=== PATIENT | female | born 1995 | race Hispanic/Latino ===

== ENCOUNTER → 2020-02-29 | Outpatient (CLI) | payer OTHER ==
--- NOTE | 2020-02-29 13:58 | REP ---
OB ULTRASOUND AND BIOPHYSICAL PROFILE: Real-time sonographic evaluation of the gravid uterus performed. There is a single living intrauterine gestation with an estimated gestational age 38 weeks 6 days with EDC 03/08/2020. heart rate is 147 beats per minute. Amniotic fluid is within normal limits. LUIS CARLOS 10.3, normal range 7.2 to 22.7. Biophysical profile score 8/8. S/D ratio 1.95, normal range 1.6 to 2.6. RI 0.49. position vertex. Placenta is anterior and grade 2 with no previa or abruption. Electronically Signed by Jhoan Boateng MD 02/29/2020 03:08 P
== END ==
LOC: M RAD 12:10
PROVIDERS: ATTEND Registered Nurse Maternal Newborn
DX: O26.843 Uterine size-date discrepancy, third trimester (principal); Z3A.38 38 weeks gestation of pregnancy

== ENCOUNTER 2020-03-12 09:55 | Inpatient (IN) | payer OTHER ==
[~2020-03-12] VITALS: Ht 157.5 cm; Wt 97.2 kg
[2020-03-12] VITALS (72 sets, daily range): BP systolic 76–123; BP diastolic 38–69
[2020-03-12] MEDS ORDERED: ACYC1CAP20 PO (10:15)
[2020-03-12] MEDS ORDERED: PENICILLIN G POTASSIUM IV 5 MU in D5W MINI-BAG PLUS 100 ML IV STA ×2 (10:34→11:47)
[2020-03-12] MEDS ORDERED: OXYTOCIN DRIP 30 UNITS in IV 1 EA IV SCH (10:45)
[2020-03-12] MEDS ORDERED: LR 1,000 ML IV ONE (11:00)
[2020-03-12] MEDS: LR 1,000 ML IV SCH ×2 (11:27→16:58)
[2020-03-12 11:30] LABS: BASO % 0.1 % (0.0-1.0); EOS % 0.6 % (0.0-3.0); HEMATOCRIT 31.2 % (36.0-47.0); HEMOGLOBIN 10.1 g/dl (12.0-15.5); LYMPH % 15.5 % (24.0-44.0); MEAN CORPUSCULAR HEMOGLOBIN 26.1 pg (27.0-33.0); MEAN CORPUSCULAR HGB CONC 32.4 g/dl (32.0-36.5); MEAN CORPUSCULAR VOLUME 80.6 fl (80.0-96.0); MONO # 0.6 10^3/uL (0.0-0.8); MONO % 8.5 % (0.0-5.0); NEUTROPHILS % 74.7 % (36.0-66.0); PLATELET COUNT, AUTOMATED 201 10^3/uL (150-450); RED BLOOD COUNT 3.87 10^6/uL (4.00-5.40); WHITE BLOOD COUNT 6.7 10^3/uL (4.0-10.0)
[2020-03-12 12:41] LABS: HIV 1&2 SCREEN CENTAUR NEGATIVE (NEGATIVE)
[2020-03-12] MEDS ORDERED: PENICILLIN G POTASSIUM IV 2.5 MU in IV 1 EA IV SCH (14:45)
[2020-03-12] MEDS: PENICILLIN G POTASSIUM IV 2.5 MU in IV 1 EA IV SCH ×2 (16:05→20:26)
--- NOTE | 2020-03-12 16:38 | IPNPDOC ---
Text Note Date of Service The patient was seen on 03/12/20. NOTE Patient is uncomfortable w/ ctx. No LOF or VB. VS WNL NAD ABD NT, gravid SVE /0 LE no edema FHT, category 1, 140s, reactive, no decels, ctx q2min AROM clear. A/P Active labor. Fetus reassuring on pitocin. May reduce pitocin as necessary. Epidural per patient request. D/w patient. VS,Fishbone, I+O VS, Fishbone, I+O Laboratory Tests 03/12/20 11:12 Vital Signs Date Time Temp Pulse Resp B/P (MAP) Pulse Ox O2 Delivery O2 Flow Rate FiO2 03/12/20 15:09 81 108/55 (72) 03/12/20 10:11 96.5 16 Room Air Carlie Bustamante MD March 12, 2020 16:38
[2020-03-12] MEDS ORDERED: FENTANYL 2MCG/ML ROPIVACAINE 0.2% IN 0.9% NACL 100ML IVBAG As Ordered ONE (16:42)
[2020-03-12] MEDS ORDERED: LACTATED RINGER'S 1000 ML IV PRN (17:45)
[2020-03-12] MEDS ORDERED: EPIDURAL/PCA KEYS XX PRN (17:45)
[2020-03-12] MEDS ORDERED: ONDANSETRON 4MG/2ML VIAL IV PRN (17:45)
[2020-03-12] MEDS ORDERED: FENTANYL/ROPIVACAINE/NACL BAG 100 ML EPIDURAL SCH (17:45)
[2020-03-12] MEDS ORDERED: REFRIGERATOR IV KEYS XX PRN (17:45)
[2020-03-12] MEDS ORDERED: diphenhydrAMINE 50MG/ML VIAL (J1200) IV PRN (17:45)
[2020-03-12] MEDS ORDERED: NALOXONE INJ 0.4MG/1ML VIAL (J2310 PER 1MG) IV PRN (17:45)
[2020-03-12] MEDS ORDERED: EPIDURAL COMMENT XX SCH (17:45)
[2020-03-12] MEDS: ePHEDrine SULFATE 25 MG/5 ML(5MG/ML) SYRINGE IV PRN ×3 (19:34→19:42)
[2020-03-12] MEDS ORDERED: diphenhydrAMINE 25MG CAP PO PRN (23:30)
[2020-03-12] MEDS ORDERED: CALCIUM CARBONATE 500 MG CHEW U/D PO PRN (23:30)
[2020-03-12] MEDS ORDERED: ACETAMINOPHEN 500 MG TAB PO PRN (23:30)
[2020-03-12] MEDS ORDERED: ONDANSETRON 4MG/2ML VIAL IV SCH (23:30)
[2020-03-12] MEDS ORDERED: MOM 30ML SUSPENSION UDC PO PRN (23:30)
[2020-03-12] MEDS ORDERED: SIMETHICONE 80MG CHEW TAB PO PRN (23:30)
[2020-03-13] VITALS (13 sets, daily range): BP systolic 92–117; BP diastolic 45–65
[2020-03-13] MEDS: PENICILLIN G POTASSIUM IV 2.5 MU in IV 1 EA IV SCH (00:29)
--- NOTE | 2020-03-13 01:53 | IPNPDOC ---
Text Note Date of Service The patient was seen on 03/13/20. NOTE Called for repetive late decels. Pitocin was stopped and positioning changed. Patient is feeling a little pressure. Now FHT Category 1, 130s, reactive, no decels, ctx q1-3min. A/P: Expt mgt without pitocin. Fetus now reassuring. VS,Fishbone, I+O VS, Fishbone, I+O Laboratory Tests 03/12/20 11:12 Vital Signs Date Time Temp Pulse Resp B/P (MAP) Pulse Ox O2 Delivery O2 Flow Rate FiO2 03/12/20 23:37 69 99/55 (70) 03/12/20 23:37 18 03/12/20 23:15 98.6 03/12/20 16:05 Room Air I&O- Last 24 Hours up to 6 AM 03/13/20 06:00 Output Total 550 ml Balance -550 ml Carlie Bustamante MD March 13, 2020 01:53
--- NOTE | 2020-03-13 02:41 | DNPDOC ---
[facility] Delivery Note Delivery Note DATE OF DELIVERY: 03/13/2020 PREDELIVERY DIAGNOSIS: 40-5/7 weeks' gestation and labor. POST DELIVERY DIAGNOSIS: Delivered. PROCEDURE: Spontaneous vaginal delivery. STACK MATCHER: Dr. Bustamante ANESTHESIA: Epidural. ESTIMATED BLOOD LOSS: 200 mL. FINDINGS: 9 pound 12 ounce 4410gm boy infant, Score 6/9, nuchal cord times 1. DELIVERY SUMMARY: Patient is a 24-year-old 4 now para 3 who was admitted to labor and delivery for active labor for 8hours. Patient AROM clear around 1623. Baby boy head was delivered without difficulty over intact perineum in ADRIANO position at 0207. The nose and mouth were bulb suctioned. x1 nuchal cord was noted. The shoulders were then delivered without difficulty. was handed on mother's belly with vigorous stimulation by nurse. Cord was then clamped x2 and cut after pulsation. Pitocin bolus was started. Perineum and vagina was inspected and found to have no laceration. The placenta was then delivered at 0226 spontaneously intact. Cord had a 3 vessel cord. EBL was 200mL. The vagina and perineum were reinspected and no further lacerations were found and hemostasis was good. Fundus was firm. Patient was given cytotec 1000mg UT due to large baby and multigravid status risk for PPH. Patient tolerated delivery well. Carlie Bustamante MD March 13, 2020 02:36
[2020-03-13] MEDS ORDERED: METHYLERGONOVINE MALEATE 0.2 MG TAB PO PRN (02:45)
[2020-03-13] MEDS ORDERED: ANUSOL HC CREAM 30GM TOP PRN (02:45)
[2020-03-13] MEDS ORDERED: MEASLES,MUMPS,RUBELLA VACCINE INJ (MMR-II) (90707) SC SCH (02:45)
[2020-03-13] MEDS ORDERED: OXYTOCIN DRIP 30 UNITS in IV 1 EA IV SCH (02:45)
[2020-03-13] MEDS ORDERED: ACETAMINOPHEN 500 MG TAB PO PRN (02:45)
[2020-03-13] MEDS ORDERED: DIBUCAINE 1% OINTMENT 30GM TOP PRN (02:45)
[2020-03-13] MEDS ORDERED: ACET-683 PO (07:11)
[2020-03-13] MEDS ORDERED: IBUP80TA PO (07:11)
[2020-03-13] MEDS ORDERED: PROC1CRE5 TOP (07:11)
[2020-03-13] MEDS ORDERED: DOCU100C16 PO (07:11)
[2020-03-13] MEDS ORDERED: DIBU10OI TOP (07:11)
[2020-03-13] MEDS: DOCUSATE SODIUM 100MG CAPSULE PO SCH ×2 (08:31→22:51)
[2020-03-13] MEDS: IBUPROFEN 800 MG TAB PO PRN ×2 (08:31→19:48)
[2020-03-13] MEDS: PRENATAL VITAMINS CHEWABLE TABLET PO SCH (08:31)
[2020-03-14 06:22] VITALS: BP 98/50
--- NOTE | 2020-03-14 06:43 | DS.PDOC ---
Discharge Summary General Date of Admission March 12, 2020 at 10:34 Date of Discharge 03/13/2020 Discharge Summary PROCEDURES PERFORMED DURING STAY: None. ADMITTING DIAGNOSES: 1. Term 2. Active Labor DISCHARGE DIAGNOSES: 1. Term 2. Active Labor COMPLICATIONS/CHIEF COMPLAINT: Labor HISTORY OF PRESENT ILLNESS: see H&P HOSPITAL COURSE: Patient had without complications. Bleeding like menses. Tolerating diet. Passing flatus. Able to ambulate. Pain tolerable with pain medications. Urinating without difficulty. DISCHARGE MEDICATIONS: Please see below. ALLERGIES: Please see below. PHYSICAL EXAMINATION ON DISCHARGE: VITAL SIGNS: Please see below. GENERAL: No acute distress HEENT: MMM BREAST: Nontender, no erythema CARDIOVASCULAR EXAMINATION: RRR RESPIRATORY EXAMINATION: Bilaterally clear ABDOMINAL EXAMINATION: Soft, appropriate tenderness, nondistended, fundus -2 EXTREMITIES: no edema, nontender LABORATORY DATA: Please see below. IMAGING: none PROGNOSIS: Good ACTIVITY: Pelvic rest. DIET: Regular DISCHARGE PLAN: Home DISPOSITION: . DISCHARGE INSTRUCTIONS: 1. See attached. ITEMS TO FOLLOWUP ON ON OUTPATIENT: 1. 6wks in clinic. DISCHARGE CONDITION: Stable. TIME SPENT ON DISCHARGE: Greater than 10 minutes. Vital Signs/I&Os Vital Signs Date Time Temp Pulse Resp B/P (MAP) Pulse Ox O2 Delivery O2 Flow Rate FiO2 03/13/20 06:06 98.1 57 16 117/56 (76) 03/12/20 16:05 Room Air I&O- Last 24 Hours up to 6 AM 03/13/20 05:59 Intake Total 3143 ml Output Total 1700 ml Balance 1443 ml Laboratory Data Labs 24H Laboratory Tests 2 03/12/20 11:02: Serology Scanned Report Hepatitis B Testing 03/12/20 11:12: Immature Granulocyte % (Auto) 0.6, Neutrophils (%) (Auto) 74.7H, Lymphocytes (%) (Auto) 15.5L, Monocytes (%) (Auto) 8.5H, Eosinophils (%) (Auto) 0.6, Basophils (%) (Auto) 0.1, Neutrophils # (Auto) 5.0, Lymphocytes # (Auto) 1.0L, Monocytes # (Auto) 0.6, Eosinophils # (Auto) 0.0, Basophils # (Auto) 0.0, Nucleated Red Blood Cells % (auto) 0.0, Syphilis Serology NONREACTIVE, HIV Antigen/Antibody Combo Qual NEGATIVE CBC/BMP Laboratory Tests 03/12/20 11:12 Discharge Medications Scheduled Acyclovir (Acyclovir) 200 Mg Capsule, 400 MG PO 5XD, (Reported) Docusate Sodium (Docusate Sodium) 100 Mg Capsule, 100 MG PO BID Scheduled PRN Acetaminophen (Acetaminophen) 500 Mg Tablet, 1,000 MG PO Q6HP PRN for fever or pain or headache Dibucaine (Dibucaine) 28 Gm Oint...g., 0 DOSE TOP Q4HP PRN for PAIN Hydrocortisone (Proctozone-Hc) 30 Gm Crm.pe.leonel, 0 DOSE TOP Q4HP PRN for DISCOMFORT Ibuprofen (Ibuprofen) 800 Mg Tablet, 800 MG PO Q8HP PRN for PAIN LEVEL 6-10 Allergies Coded Allergies: No Known Drug Allergies (Verified Allergy, Unknown, 03/12/20) Carlie Bustamante MD March 13, 2020 07:10
--- NOTE | 2020-03-14 06:43 | IPNPDOC ---
Progress Note Date of Service: March 14, 2020 Day#: 1 Progress Note SUBJECT: Patient is a 24-year-old 4 now Para 3 status post uncomplicated spontaneous vaginal delivery without vaginal laceration, doing well day # 1. She has been ambulating, voiding spontaneously without issue and tolerating regular diet. Breast feeding without issue. Reports lochia is like a normal period. Patient is ambulating well. Reports some cramping with . Denies any pain. OBJECTIVE: VITAL SIGNS: Within normal limits, afebrile. GENERAL: No acute distress HEENT: MMM BREAST: Nontender, no erythema CARDIOVASCULAR EXAMINATION: RRR RESPIRATORY EXAMINATION: Bilaterally clear ABDOMINAL EXAMINATION: Soft, appropriate tenderness, nondistended, fundus -2 PERINEUM: Intact, minimal lochia EXTREMITIES: no edema, nontender ASSESSMENT: Patient is a 24-year-old 4 now Para 3 status post uncomplicated spontaneous vaginal delivery without vaginal laceration, doing well day # 1. Vitals within normal limits, afebrile, hemodynamically stable with no evidence of infection. PLAN: 1. Discharge to home today. 2. Tylenol and Motrin for pain. 3. Encourage breast feeding and ambulation. 4. Routine PP visit in 6 weeks in clinic. 5. Discussed return precautions at length. VS, I&O, 24H, Fishbone Vital Signs/I&O Vital Signs Date Time Temp Pulse Resp B/P (MAP) Pulse Ox O2 Delivery O2 Flow Rate FiO2 03/13/20 06:06 98.1 57 16 117/56 (76) 03/12/20 16:05 Room Air I&O- Last 24 Hours up to 6 AM 03/13/20 05:59 Intake Total 3143 ml Output Total 1700 ml Balance 1443 ml Laboratory Data 24H LABS Laboratory Tests 2 03/12/20 11:02: Serology Scanned Report Hepatitis B Testing 03/12/20 11:12: Immature Granulocyte % (Auto) 0.6, Neutrophils (%) (Auto) 74.7H, Lymphocytes (%) (Auto) 15.5L, Monocytes (%) (Auto) 8.5H, Eosinophils (%) (Auto) 0.6, Basophils (%) (Auto) 0.1, Neutrophils # (Auto) 5.0, Lymphocytes # (Auto) 1.0L, Monocytes # (Auto) 0.6, Eosinophils # (Auto) 0.0, Basophils # (Auto) 0.0, Nucleated Red Blood Cells % (auto) 0.0, Syphilis Serology NONREACTIVE, HIV Antigen/Antibody Combo Qual NEGATIVE CBC/BMP Laboratory Tests 03/12/20 11:12 Carlie Bustamante MD March 13, 2020 07:07
[2020-03-14] MEDS: PRENATAL VITAMINS CHEWABLE TABLET PO SCH (09:34)
[2020-03-14] MEDS: DOCUSATE SODIUM 100MG CAPSULE PO SCH (09:34)
[2020-03-14] MEDS: IBUPROFEN 800 MG TAB PO PRN (09:37)
== END 2020-03-14 14:40 | disposition home or self-care (01) | DRG 807 ==
LOC: M LDO 09:55 → M LDI 10:34 → M OBS 03-13 04:03
PROVIDERS: ADMIT Obstetrics & Gynecology; ATTEND Obstetrics & Gynecology
PROC: 10E0XZZ Delivery of Products of Conception, External Approach (ICD-10-PCS; principal; 2020-03-13)
PROC: 10907ZC Drainage of Amniotic Fluid, Therapeutic from Products of Conception, Via Natural or Artificial Opening (ICD-10-PCS; 2020-03-13)
DX: O48.0 Post-term pregnancy (principal); Z37.0 Single live birth; Z3A.40 40 weeks gestation of pregnancy

== ENCOUNTER 2020-06-06 08:20 | Day surgery (SDC) | payer OTHER ==
[~2020-06-06 08:20] MED LIST: ACET-683 PO; ACYC1CAP20 PO; DIBU10OI TOP; DOCU100C16 PO; IBUP80TA PO; PROC1CRE5 TOP
[2020-06-06] MEDS ORDERED: ceFAZolin 1GM VIAL (J0690 PER 500MG) ONE (08:46)
[2020-06-06] MEDS ORDERED: LIDOCAINE 2% 100MG/5ML SDV (FOR ANES.) ONE (09:48)
[2020-06-06] MEDS ORDERED: LACRILUBE (AKWA TEARS) OPHTH OINT 3.5 GM ONE (09:48)
[2020-06-06] MEDS ORDERED: ROCURONIUM BROMIDE 50 MG/5 ML VIAL ONE (09:48)
[2020-06-06] MEDS ORDERED: MIDAZOLAM INJ 2MG/2ML VIAL (J2250 PER 1MG) ONE (09:48)
[2020-06-06] MEDS ORDERED: propofoL 200 MG/20 ML VIAL ONE (09:48)
[2020-06-06] MEDS ORDERED: fentaNYL 100 MCG/2 ML INJECTION (J3010) ONE (09:48)
[2020-06-06] MEDS ORDERED: dexameTHASONE 4 MG/ML 1ML VIAL (J1100 PER 1MG) ONE (09:48)
[2020-06-06] MEDS ORDERED: ONDANSETRON 4MG/2ML VIAL ONE (09:48)
[2020-06-06] MEDS ORDERED: ACETAMINOPHEN 1000MG 100ML IV BTL (OFIRMEV) (J0131 PER 10MG) ONE (11:06)
[2020-06-06] MEDS ORDERED: PHENYLephrine HCL 500 MCG/5 ML (100MCG/ML) SYRINGE (J2370) ONE (11:06)
[2020-06-06] MEDS ORDERED: SUGAMMADEX SODIUM 500 MG/5 ML VIAL (BRIDION) ONE (11:06)
[2020-06-06] MEDS ORDERED: HYDROmorphone HCL 2 MG/ML 1ML VIAL (J1170) ONE (11:06)
[2020-06-06] MEDS ORDERED: KETOROLAC 60MG 2ML VIAL ONE (11:06)
[2020-06-06] MEDS ORDERED: SIMETHICONE 80 MG CHEW TAB ONE (13:22)
[2020-07-29 01:01] LABS: BASO % 0.5 % (0.0-1.0); EOS # 0.1 10^3/uL (0.0-0.5); EOS % 1.9 % (0.0-3.0); HEMATOCRIT 37.8 % (36.0-47.0); HEMOGLOBIN 12.6 g/dl (12.0-15.5); LYMPH % 34.1 % (24.0-44.0); MEAN CORPUSCULAR HEMOGLOBIN 27.3 pg (27.0-33.0); MEAN CORPUSCULAR HGB CONC 33.3 g/dl (32.0-36.5); MONO # 0.5 10^3/uL (0.0-0.8); MONO % 7.6 % (0.0-5.0); NEUTROPHILS # 3.3 10^3/uL (1.5-8.5); NEUTROPHILS % 55.7 % (36.0-66.0); PLATELET COUNT, AUTOMATED 222 10^3/uL (150-450); RED BLOOD COUNT 4.61 10^6/uL (4.00-5.40); WHITE BLOOD COUNT 5.9 10^3/uL (4.0-10.0)
--- NOTE | 2020-08-02 11:07 | RO ---
DATE OF OPERATION: 06/06/2020 PREOPERATIVE DIAGNOSES: 1. Undesired fertility. 2. Increased risk of ovarian cancer. POSTOPERATIVE DIAGNOSES: 1. Undesired fertility. 2. Increased risk of ovarian cancer. PROCEDURE: Laparoscopic bilateral salpingectomy. SURGEON: Dr. Carlie Bustamante YOUTH MANAGER: None. ANESTHESIA: General endotracheal anesthesia (GETA). INTRAVENOUS FLUIDS: 500 mL lactated Ringer's. ESTIMATED BLOOD LOSS: 5 mL estimated. URINE OUTPUT: 250 mL, Welch catheter during procedure. COMPLICATIONS: None. SPECIMEN: Bilateral fallopian tubes. FINDINGS: Anteverted normal-size uterus and normal fallopian tubes and ovaries. No evidence of endometriosis or adhesive disease. PROCEDURE IN DETAIL: The patient was brought back to the operating room, where general anesthesia was induced, and patient was placed in a dorsal lithotomy position and draped and prepped in the usual sterile fashion. Welch catheter was then placed. Sponge stick was placed in the vagina for uterine manipulation, and then surgeon's gloves were then changed. Attention was then put to the abdomen. At this point, an infraumbilical vertical incision of approximately 1 cm was performed with an 11-blade scalpel. Dissection with a Joana clamp was performed to the fascia. With elevation of the abdominal wall, a Veress needle was introduced after checking with 10 mL normal saline syringe. This was introduced at a 45-degree angle without difficulty, and after feeling two pops, the water in the syringe was withdrawn, and no blood was seen. Then it was injected, and the water easily flowed intra-abdominally. Air flow was then attached, and opening pressure was found to be 3 mm of mercury, and a total of 4.5 liters was insufflated into the abdomen as carbon dioxide. Veress needle was then removed, and a 5 mm trocar introducer was introduced under direct visualization with a 5 mm 0-degree scope. Intra-abdominal placement was confirmed. The above findings were found. Trendelenburg positioning was then performed. The second incision was then performed approximately 4 cm superior to the pubic bone midline, horizontally just under 1 cm. Dissection was performed with a Joana clamped to the facial layer under direct visualization. A 5 mm trocar introducer was introduced under direct visualization. With an atraumatic grasper, the uterus and fallopian tubes were manipulated be easily visualized and out of harm's way up toward the anterior portion of the uterus. LigaSure device was then placed, and the right fimbriated portion of the fallopian tube was then grasped and used to coagulate and transect away from the ovary along the mesosalpinx. This was then continued through the mesosalpinx without difficulty just inferior to the fallopian tube until approximately 1 cm distal to the fundus of the uterus, where the fallopian tube was then transected. The fallopian tube was then grasped and brought through the trocar and sent off for specimen. This process was then repeated on patient's left side without difficulty. The mesosalpinx and ovaries were both examined and found to be hemostatic. Instruments were then removed, and the intra-abdominal cavity was deflated under direct visualization, and trocars were then removed. Subcuticular suture of 4-0 Monocryl was performed to close the skin incisions, and then Dermabond was placed over this. Band-aids were then placed. Instrument, lap, needle count was correct times two. Patient was in stable condition to the recovery room. MARY JANE
== END 2020-06-06 16:20 | disposition home or self-care (01) ==
LOC: M SDC 08:20
PROVIDERS: ATTEND Obstetrics & Gynecology
DX: Z30.2 Encounter for sterilization (principal)
CPT/HCPCS: 36415; 58661; 84703; 85025; 86850; 86900; 86901; 88302; J0131; J0690; J1100; J1170; J1885; J2250; J2370; J2405; J3010